=== PATIENT | male | born 1955 ===

== ENCOUNTER 2024-04-22 15:00 | Outpatient (AMB) | payer OTHER, SELFPAY ==
[2024-04-22 15:05] VITALS: BP 122/80; PULSE 99; RESP 12; TEMP 36.9; O2SAT 95; BMI 27.5
--- NOTE | 2024-04-22 15:05 | A.OFFPC_ITS ---
Vital Signs 04/22/24 15:05 Height 5 ft 10.04 in Weight 192 lb BMI 27.5 BP 122/80 Blood Pressure Location Rt brachial Position Sitting Respiration 12 Pulse 99 Pulse Source Pulse Oximeter Temp 98.5 F Temp Source Oral Pulse Oximetry (%) 95 Oxygen Delivery Method Room Air Intake Visit Reasons: He did not give a reason Intake Note: new patient Allergies No Known Allergies Allergy (Verified 04/22/24 15:12) Medication List - Last Reconciled 04/22/24 by Khadijah Lerma PA-C No Known Home Meds Tobacco use date assessed: 04/22/24 Fall risk assessment: 2 + Falls in past year Last assessed Fall Risk: 04/22/24 Dental Screening Dental Screen Date: 04/22/24 Did you have a dental visit in the last 12 months?: No Did you have a dental problem in the last 6 months where you did not have access to dental care?: No Was dental information given to patient?: Patient declined HPI He did not give a reason HPI Details Patient is a 68-year-old male who presents today to establish care. He states he has never had a pcp. He states in [place] he broke his left hip but prior to that did not have a pcp or any medical problems. He states that they replaced the hip and he has been feeling ok. He states they made this appointment to see a distribution operations supervisor for his thickened to enails. He has not had a colonoscopy. He does not want [facility] Medical History (Updated 04/22/24 @ 15:35 by Khadijah Lerma PA-C) Hx of fracture of left hip Social History (Updated 04/22/24 @ 15:07 by Mervat Andrews) Housing: House Patient Tobacco Use Status: Never used Tobacco Tobacco use type: Cigarette Cigarette Packs Per Day: 1 Years Smoked: 50 e-Cigarette/Vaping Use: Never Used Second Hand Smoke Exposure: No service: No Current occupational status: retired Current occupational exposures/hazards: No Cognitive needs: No Hearing needs: No Vision needs: Yes Questionnaire PHQ-9 Over the last 2 weeks, how often have you been bothered by any of the following problems? 1. Little interest or pleasure in doing things: not at all 2. Feeling down, depressed, or hopeless: not at all 3. Trouble falling or staying asleep, or sleeping too much: not at all 4. Feeling tired or having little energy: not at all 5. Poor appetite or overeating: not at all 6. Feeling bad about yourself - or that you are a failure or have let yourself or your family down: not at all 7. Trouble concentrating on things, such as reading the newspaper or watching television: not at all 8. Moving or speaking so slowly that other people could have noticed. Or the opposite - being so fidgety or restless that you have been moving around a lot more than usual: not at all 9. Thoughts that you would be better off or of hurting yourself in some way: not at all Total score: 0 Depression Screening Interpretation: Negative Depression Screening Done: Yes 88788 - PHQ-9 Billing: Yes Source: Developed by Drs. Keanu Rodrigues, Shahida Tejada, Ji Esteban and colleagues, with an educational herminia from [employer]. Thrive Questionnaire Date Thrive assessed: 04/22/24 I am a: Patient What is your living situation today?: I have a steady place to live Within the past 12 months, did the food you bought not last and you didn't have the money to get more?: I choose not to answer this question Within the past 12 months, did you worry whether your food would run out before you got money to buy more?: I choose not to answer this question Do you have trouble paying for medicines?: No Do you have trouble getting transportation to medical appointments?: No Do you have trouble paying your heating and electricity bill?: No Do you have trouble taking care of your child, family member or friend?: I choose not to answer this question Do you have trouble with day-to-day activities such as bathing, preparing meals, shopping, managing finances, etc.?: No Are you currently unemployed and looking for a job?: No Are you interested in more education?: No Please select the resources that you would like help with: None Currently or been in a relationship where the following occur: No concerns reported THRIVE Score: 0 AUDIT C Alcohol Use Questionnaire (AUDIT-C) 1. How often do you have a drink containing alcohol?: Never 3. How often do you have six or more drinks on one occasion?: Never Total Score: 0 Score Reviewed/Action Taken: Yes BLAKE-7 AMB Questionnaire BLAKE-7 Date BLAKE - 7 assessed: 04/22/24 Feeling nervous, anxious, or on edge: 0 = Not at all Not being able to stop or control worryin = Not at all Worrying too much about different things: 0 = Not at all Trouble relaxin = Not at all Being so restless that it is hard to sit still: 0 = Not at all Becoming easily annoyed or irritable: 0 = Not at all Feeling afraid as if something awful might happen: 0 = Not at all Total BLAKE-7 score (0-4 normal; 5-9 mild; 10-14 moderate; 15-21 severe): 0 Source: Developed by Drs. Keanu Rodrigues, Shahida Tejada, Ji Esteban and colleagues, with an educational herminia from [employer]. BLAKE-7 Assessment Billing BLAKE-7 Assessment Tool: BLAKE-7 Assessment 99386 Physical exam (Primary Care) Vital Signs: Last Vital Signs Temp 98.5 F 04/22/24 15:05 Pulse 99 04/22/24 15:05 Resp 12 04/22/24 15:05 BP 122/80 04/22/24 15:05 Pulse Ox 95 04/22/24 15:05 Oxygen Delivery Method Room Air 04/22/24 15:05 BMI result Body Mass Index 27.5 Tobacco/Smoking Status: Tobacco use Status Tobacco use date assessed 04/22/24 04/22/24 15:18 Patient Tobacco Use Status Never used Tobacco 04/22/24 15:18 Tobacco use type Cigarette 04/22/24 15:18 e-Cigarette/Vaping Use Never Used 04/22/24 15:18 PHQ-9: PHQ-9 Score PHQ-9: Total score 0 04/22/24 15:18 Depression Screening Interpretation: Negative Thrive Assessment: Date of Thrive Assessment Date Thrive assessed 04/22/24 04/22/24 15:18 Currently or been in a relationship where the following occur: No concerns reported Const Orientation/consciousness: patient oriented x3 HENMT Ears: hearing grossly normal bilaterally Neck Thyroid: Thyroid normal Lymphatic: no lymphadenopathy noted Resp Auscultation: clear to auscultation bilaterally Cardio Rate: regular rate Rhythm: regular rhythm Heart sounds: S1 normal heart sound present and S2 normal heart sound present Skin General skin exam: no rashes or lesions noted Nails: yellow and thickened Neuro General: patient oriented x3, gait normal and no focal motor deficits Assessment and Plan Assessment & Plan (1) Onychomycosis: Code(s): B35.1 - Tinea unguium Plan: ref to podiatry declines treatment from me. wants to wait until podiatry. (2) Encounter to establish care: Code(s): Z76.89 - Persons encountering health services in other specified circumstances Plan: labs ordered today. hm reviewed and declines/refuses. (3) Tobacco abuse: Code(s): Z72.0 - Tobacco use Plan: offered counseling and patches but declines. declines low dose chest ct screening Orders: Orders Prostate Specific Antigen Scr Today B35.1 - Tinea unguium, Z13.220 - Encounter for screening for lipoid disorders, Z76.89 - Persons encountering health services in other specified circumstances Comprehensive Met. Panel Today B35.1 - Tinea unguium, Z13.220 - Encounter for screening for lipoid disorders, Z76.89 - Persons encountering health services in other specified circumstances Complete Blood Count Auto Diff Today B35.1 - Tinea unguium, Z13.220 - Encounter for screening for lipoid disorders, Z76.89 - Persons encountering health services in other specified circumstances UA CC w/rflx Micro + Cult Today B35.1 - Tinea unguium, Z13.220 - Encounter for screening for lipoid disorders, Z76.89 - Persons encountering health services in other specified circumstances Lipid Panel Today B35.1 - Tinea unguium, Z13.220 - Encounter for screening for lipoid disorders, Z76.89 - Persons encountering health services in other specified circumstances TSH reflex Free T4 Today B35.1 - Tinea unguium, Z13.220 - Encounter for screening for lipoid disorders, Z76.89 - Persons encountering health services in other specified circumstances Referrals Podiatry Referral B35.1 - Tinea unguium Coding Level of Care Code New Pt Level 3 (08410) Complex EM visit Add On G2211 Diagnoses Onychomycosis B35.1 Encounter to establish care Z76.89 Tobacco abuse Z72.0 Additional Codes BLAKE-7 Assessment Billing - BLAKE-7 Assessment Tool: BLAKE-7 Assessment 79702 ([id number])
== END 2024-04-22 15:54 | disposition home or self-care (01) ==
PROVIDERS: Visit Provider Physician Assistant
DX: B35.1 Tinea unguium (principal); Z76.89 Persons encountering health services in other specified circumstances; Z72.0 Tobacco use
CPT/HCPCS: 99203; G2211

== ENCOUNTER 2024-07-29 15:14 | Outpatient (AMB) | payer OTHER, SELFPAY ==
--- NOTE | 2024-07-29 15:45 | A.OFFPC_ITS ---
Vital Signs 07/29/24 15:54 07/29/24 16:02 Height 5 ft 10.4 in Weight 202 lb BMI 28.7 BP 154/96 H 152/90 H Blood Pressure Location Lt brachial Lt brachial Position Sitting Sitting Pulse 81 Pulse Source Pulse Oximeter Pulse Oximetry (%) 91 L Oxygen Delivery Method Room Air Intake Visit Reasons: review Intake Note: Follow up Allergies No Known Allergies Allergy (Verified 07/29/24 15:48) Tobacco use date assessed: 07/29/24 Fall risk assessment: 1 Fall in past year Last assessed Fall Risk: 07/29/24 Dental Screening Dental Screen Date: 07/29/24 Did you have a dental visit in the last 12 months?: No Did you have a dental problem in the last 6 months where you did not have access to dental care?: No Was dental information given to patient?: Patient declined HPI review HPI Details Pt is a 68 y/o male who presents today for a follow up. He has no acute concerns today. States that he forgot to get his blood work done. His bp is elevated today and it is normally WNL. He has been smoking more cigarettes than normal. He states he is a little excited today because he won 500 dollars on a 30 dollars scratch ticket. He does state that he gambles 30 dollars every day. He does not think that he has a problem and states that he lives with in his means. He is smoking cigarettes and states that he not ready to quit. He does not want screening tests. He saw the concrete spreader for his toenails and states that they are now normal. He follows up every 3 months. He states that he is still thinking about doing routine screening test. At this point he does not want to do anything different or take any medication. [facility] Medical History (Updated 07/29/24 @ 16:12 by Khadijah Lerma PA-C) Hx of fracture of left hip Surgical History (Updated 07/29/24 @ 15:50 by Suri Menendez CMA) History of hip surgery Social History (Updated 07/29/24 @ 15:51 by Suri Menendez CMA) Housing: House Alcohol intake: former Comment: beer about every six months. Patient Tobacco Use Status: Current everyday Tobacco user Tobacco use type: Cigarette Cigarette Packs Per Day: 1 Years Smoked: 50 e-Cigarette/Vaping Use: Never Used Second Hand Smoke Exposure: No service: No Current occupational status: retired Current occupational exposures/hazards: No Cognitive needs: No Hearing needs: No Vision needs: Yes Questionnaire Thrive Questionnaire Date Thrive assessed: 04/22/24 BLAKE-7 AMB Questionnaire BLAKE-7 Date BLAKE - 7 assessed: 04/22/24 Source: Developed by Drs. Keanu Rodrigues, Shahida Tejada, Ji Esteban and colleagues, with an educational herminia from [employer]. Physical exam (Primary Care) Vital Signs: Last Vital Signs Pulse 81 07/29/24 15:54 BP 152/90 H 07/29/24 16:02 Pulse Ox 91 L 07/29/24 15:54 Oxygen Delivery Method Room Air 07/29/24 15:54 BMI result Body Mass Index 28.7 Tobacco/Smoking Status: Tobacco use Status Tobacco use date assessed 07/29/24 07/29/24 15:57 Patient Tobacco Use Status Current everyday Tobacco 07/29/24 15:57 Tobacco use type Cigarette 07/29/24 15:51 e-Cigarette/Vaping Use Never Used 07/29/24 15:51 Thrive Assessment: Date of Thrive Assessment Date Thrive assessed 04/22/24 07/29/24 15:46 Const Orientation/consciousness: patient oriented x3 HENMT Ears: hearing grossly normal bilaterally Neck Thyroid: Thyroid normal Lymphatic: no lymphadenopathy noted Resp Auscultation: clear to auscultation bilaterally Cardio Rate: regular rate Rhythm: regular rhythm Heart sounds: S1 normal heart sound present and S2 normal heart sound present Skin General skin exam: no rashes or lesions noted Neuro General: patient oriented x3, gait normal and no focal motor deficits Coding Level of Care Code Est Pt Level 4 (53218) Complex EM visit Add On G2211 Diagnoses Elevated blood pressure reading in office without diagnosis of hypertension R03.0 Tobacco abuse Z72.0 Assessment & Plan Assessment & Plan (1) Elevated blood pressure reading in office without diagnosis of hypertension: Code(s): R03.0 - Elevated blood-pressure reading, without diagnosis of hypertension Category: Medical Plan: Discussed bringing him back into rechecked his blood pressure but he states that he will not come back in until October. We did discuss the risks associated with untreated hypertension including increased risk of stroke, heart attack etc.. He will see if he can check it somewhere else and we will let me know. He does not want any medication. I have encouraged smoking cessation. Advised him to get his labs. (2) Tobacco abuse: Code(s): Z72.0 - Tobacco use Category: Medical Plan: As above Plan Flu shot today.
[2024-07-29 15:54] VITALS: BP 154/96; PULSE 81; O2SAT 91; BMI 28.7
[2024-07-29 16:02] VITALS: BP 152/90
== END 2024-07-29 16:25 | disposition home or self-care (01) ==
LOC: HO.HMCFM 15:14
PROVIDERS: PCP Physician Assistant; Visit Provider Physician Assistant
DX: Z23 Encounter for immunization (principal)

== ENCOUNTER → 2024-07-29 15:14 | Outpatient (BNVA) | payer OTHER, SELFPAY | PROVIDERS: PCP Physician Assistant; Visit Provider Physician Assistant | DX: Z23 Encounter for immunization (principal); R03.0 Elevated blood-pressure reading, without diagnosis of hypertension; Z72.0 Tobacco use | CPT/HCPCS: 90471; 90656; 99212 ==

== ENCOUNTER 2024-11-03 15:23 | Outpatient (AMB) | payer OTHER, SELFPAY ==
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
[2024-11-03 15:34] VITALS: BP 128/88; PULSE 85; RESP 14; O2SAT 100; BMI 30.1
--- OUTSIDE RECORDS SUMMARY | 2024-11-03 16:18 | XMS_ITS | Patient Health Record ---
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 [facility] [place] [address] [id number] Raman Vela Self - patient is the insured 2
== END 2024-11-03 15:56 | disposition home or self-care (01) ==
PROVIDERS: PCP Physician Assistant; Visit Provider Physician Assistant
DX: Z72.0 Tobacco use (principal); R03.0 Elevated blood-pressure reading, without diagnosis of hypertension

== ENCOUNTER 2025-05-04 15:19 | Outpatient (AMB) | payer OTHER, SELFPAY ==
--- OUTSIDE RECORDS SUMMARY | 2025-05-04 15:22 | XMS_ITS | Patient Health Record ---
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 [facility] [place] [address] [id number] Raman Vela Self - patient is the insured 2
--- NOTE | 2025-05-04 15:30 | MHC.PC.OV ---
Vital Signs 05/04/25 15:33 Height 5 ft 10.4 in Weight 205 lb BMI 29.1 BP 136/84 Blood Pressure Location Rt brachial Position Sitting Respiration 14 Pulse 99 Pulse Source Pulse Oximeter Temp 97.6 F Temp Source Temporal Artery Scan Pulse Oximetry (%) 97 Oxygen Delivery Method Room Air Intake Visit Reasons: labs and meds Intake Note: Raman presents in the office today for a lab review and medication check in. Patient did not get lab work done. Allergies No Known Allergies Allergy (Verified 05/04/25 15:32) Tobacco use date assessed: 05/04/25 Fall risk assessment: 1 Fall in past year Last assessed Fall Risk: 05/04/25 Dental Screening Dental Screen Date: 05/04/25 Did you have a dental visit in the last 12 months?: No Did you have a dental problem in the last 6 months where you did not have access to dental care?: No Was dental information given to patient?: Patient declined HPI labs and meds HPI Details Patient is a 69-year-old male who presents today for a follow up. He was supposed to complete labs prior to today's appointment but did not. He states that he is not ready yet to do labs or screening tests. He states that he will consider this in 6 months. CV: Blood pressure today in the office is 136/84. Colonoscopy: never did this, ignored phone calls states he is not ready yet to do any screening PSA:declines right now LDCT: never did, does not want to do this now understands that the screening tests help look for early detection and if caught early, usually has a better prognosis PFSH Medical History (Updated 11/03/24 @ 15:48 by Khadijah Lerma PA-C) Hx of fracture of left hip Surgical History (Updated 07/29/24 @ 15:50 by Suri Menendez CMA) History of hip surgery Social History (Updated 05/04/25 @ 15:33 by Paige Lovell MA) Housing: House Alcohol intake: current Comment: beer about every six months. Patient Tobacco Use Status: Current everyday Tobacco user Tobacco use type: Cigarette Cigarette Packs Per Day: 1 Years Smoked: 50 e-Cigarette/Vaping Use: Never Used Second Hand Smoke Exposure: No service: No Current occupational status: retired Current occupational exposures/hazards: No Cognitive needs: No Hearing needs: No Vision needs: Yes Questionnaire Thrive Questionnaire Date Thrive assessed: 04/22/24 BLAKE-7 AMB Questionnaire BLAKE-7 Date BLAKE - 7 assessed: 04/22/24 Source: Developed by Drs. Keanu Rodrigues, Shahida Tejada, Ji Esteban and colleagues, with an educational herminia from [employer]. Physical exam (Primary Care) Vital Signs: Last Vital Signs Temp 97.6 F 05/04/25 15:33 Pulse 99 05/04/25 15:33 Resp 14 05/04/25 15:33 BP 136/84 05/04/25 15:33 Pulse Ox 97 05/04/25 15:33 Oxygen Delivery Method Room Air 05/04/25 15:33 BMI result Body Mass Index 29.1 Tobacco/Smoking Status: Tobacco use Status Tobacco use date assessed 05/04/25 05/04/25 15:36 Patient Tobacco Use Status Current everyday Tobacco 05/04/25 15:33 Tobacco use type Cigarette 05/04/25 15:33 e-Cigarette/Vaping Use Never Used 05/04/25 15:33 Thrive Assessment: Date of Thrive Assessment Date Thrive assessed 04/22/24 05/04/25 15:31 Const Orientation/consciousness: patient oriented x3 HENMT Ears: hearing grossly normal bilaterally Neck Thyroid: Thyroid normal Lymphatic: no lymphadenopathy noted Resp Auscultation: clear to auscultation bilaterally Cardio Rate: regular rate Rhythm: regular rhythm Heart sounds: S1 normal heart sound present and S2 normal heart sound present GI Inspection: Yes normal to inspection Palpation (GI): Soft to palpation and Other GI palpation findings present (nontender, no cva tenderness) Auscultation: normoactive bowel sounds Rectal Exam - Male: Yes deferred Skin General skin exam: no rashes or lesions noted Neuro General: patient oriented x3, gait normal and no focal motor deficits Coding Level of Care Code Est Pt Level 4 (18932) Complex EM visit Add On G2211 Diagnoses Elevated blood pressure reading in office without diagnosis of hypertension R03.0 Tobacco abuse Z72.0 Assessment & Plan Assessment & Plan (1) Elevated blood pressure reading in office without diagnosis of hypertension: Code(s): R03.0 - Elevated blood-pressure reading, without diagnosis of hypertension Category: Medical Plan: We will continue to monitor. Does not want medication. (2) Tobacco abuse: Code(s): Z72.0 - Tobacco use Category: Medical Plan: continuing to smoke, does not want to quit
[2025-05-04 15:33] VITALS: BP 136/84; PULSE 99; RESP 14; TEMP 36.4; O2SAT 97; BMI 29.1
== END 2025-05-04 16:03 | disposition home or self-care (01) ==
LOC: HO.HMCFM 15:20
PROVIDERS: PCP Physician Assistant; Visit Provider Physician Assistant
DX: R03.0 Elevated blood-pressure reading, without diagnosis of hypertension (principal); Z72.0 Tobacco use